=== PATIENT | male | born 1960 | race Caucasian/White ===

== ENCOUNTER 2024-04-12 07:13 | Inpatient (IN) | payer MEDICAID ==
[~2024-04-12] VITALS: Ht 172.7 cm; Wt 80.7 kg
[~2024-04-12 07:13] MED LIST: AMOX-999 PO
[2024-04-12 07:47] VITALS: BP 149/96; PULSE 74; RESP 18; TEMP 97.3; O2SAT 99
[2024-04-12 09:14] LABS: BASOPHILS % (AUTO) 0.4 % (0.0-2.0); EOSINOPHILS # (AUTO) 0.2 K/uL (0-0.4); EOSINOPHILS % (AUTO) 2.7 % (0.0-4.0); HEMATOCRIT 43.5 % (36-52); HEMOGLOBIN 14.5 g/dL (12.0-18.0); LYMPHOCYTES # (AUTO) 2.4 K/uL (2.0-11.5); LYMPHOCYTES % (AUTO) 26.9 % (20.5-51.1); MEAN CORPUSCULAR HEMOGLOBIN 30 pg (27-31); MEAN CORPUSCULAR HGB CONC 34 g/dL (33-37); MEAN CORPUSCULAR VOLUME 90.4 fL (80-94); MONOCYTES # (AUTO) 0.8 K/uL (0.8-1.0); MONOCYTES % (AUTO) 8.7 % (1.7-9.3); NEUTROPHILS # (AUTO) 5.6 K/uL (1.8-7.7); NEUTROPHILS % (AUTO) 61.3 % (42.2-75.2); PLATELET COUNT (AUTO) 397 K/uL (140-450); RED BLOOD CELL COUNT(AUTO) 4.81 MIL/uL (4.20-6.10); RED CELL DISTRIBUTION WIDTH 14.9 % (11.6-13.7); WHITE BLOOD COUNT (AUTO) 9.1 K/uL (4.8-10.8)
[2024-04-12 09:26] LABS: INR 0.98 (0.8-1.2); PROTHROMBIN TIME 10.3 secs (10.8-13.4)
[2024-04-12 09:32] LABS: ANION GAP 11.9 (8-16); CALCIUM 8.6 mg/dL (8.5-10.1); CREATININE 0.8 mg/dL (0.6-1.3); POTASSIUM 3.9 mmol/L (3.5-5.1)
[2024-04-12 09:36] LABS: ALBUMIN 3.6 g/dL (3.4-5.0); BILIRUBIN,DIRECT 0.2 mg/dL (0.0-0.3); TOTAL BILIRUBIN 0.8 mg/dL (0.0-1.0); TOTAL PROTEIN, SERUM 7.2 g/dL (6.4-8.2)
[2024-04-12] MEDS ORDERED: CLINDAMYCIN 600 MG/4 ML VIAL IV ONE (12:55)
[2024-04-12] MEDS: AMPICILLIN/SULBACTAM 1.5 GM in NACL 0.9% 50 ML IV SCH (13:00)
[2024-04-12] MEDS: CLINDAMYCIN 600MG/D5W PM 50 ML IV SCH (13:02)
[2024-04-12] MEDS: LIDOCAINE/EPI 1% 1:100000 20 ML VIAL INJ ONE ×2 (13:45→14:40)
[2024-04-12] MEDS ORDERED: HYDROcodone/APAP 5/325 MG 1 TAB TAB PO PRN (14:05)
[2024-04-12] MEDS ORDERED: HYDROmorphone 1 MG/ML AMP IVP PRN (14:05)
[2024-04-12] MEDS: ACETAMINOPHEN 100 ML IV ONE (14:15)
[2024-04-12] MEDS: fentaNYL citrate 0.05 MG/ML VIAL ONE (14:17)
[2024-04-12] MEDS: MIDAZOLAM 2 MG/2 ML VIAL ONE (14:17)
[2024-04-12] MEDS: PROPOFOL 200 MG/20 ML VIAL IV ONE ×2 (14:25→14:41)
[2024-04-12] MEDS: BUPIVACAINE-MPF 0.25% 30 ML VIAL INJ ONE (14:40)
[2024-04-12] MEDS: HYDROGEN PEROXIDE 3% 240 ML BTL TP ONE (14:45)
[2024-04-12 15:50] VITALS: PULSE 55; RESP 20; RESP 55; O2SAT 99
[2024-04-12] MEDS: lisinopriL 5 MG TAB PO SCH (17:45)
[2024-04-12 20:00] VITALS: BP 129/74; PULSE 71; PULSE 74; RESP 18; TEMP 97.5; O2SAT 96
[2024-04-13] VITALS: BP 115/71; PULSE 64; PULSE 73; RESP 18; TEMP 97.8; O2SAT 97
[2024-04-13 04:00] VITALS: BP 105/67; PULSE 66; PULSE 69; RESP 16; TEMP 98; O2SAT 97
[2024-04-13 06:11] LABS: BASOPHILS % (AUTO) 0.4 % (0.0-2.0); EOSINOPHILS # (AUTO) 0.5 K/uL (0-0.4); EOSINOPHILS % (AUTO) 4.7 % (0.0-4.0); HEMATOCRIT 40.3 % (36-52); HEMOGLOBIN 13.6 g/dL (12.0-18.0); LYMPHOCYTES # (AUTO) 2.3 K/uL (2.0-11.5); LYMPHOCYTES % (AUTO) 21.7 % (20.5-51.1); MEAN CORPUSCULAR HEMOGLOBIN 30 pg (27-31); MEAN CORPUSCULAR HGB CONC 34 g/dL (33-37); MEAN CORPUSCULAR VOLUME 89.9 fL (80-94); MONOCYTES # (AUTO) 0.8 K/uL (0.8-1.0); MONOCYTES % (AUTO) 7.9 % (1.7-9.3); NEUTROPHILS % (AUTO) 65.3 % (42.2-75.2); PLATELET COUNT (AUTO) 373 K/uL (140-450); RED BLOOD CELL COUNT(AUTO) 4.48 MIL/uL (4.20-6.10); RED CELL DISTRIBUTION WIDTH 14.8 % (11.6-13.7); WHITE BLOOD COUNT (AUTO) 10.7 K/uL (4.8-10.8)
[2024-04-13 06:14] LABS: ANION GAP 9.3 (8-16); CALCIUM 8.6 mg/dL (8.5-10.1); CARBON DIOXIDE 28.8 mmol/L (21-32); CREATININE 0.7 mg/dL (0.6-1.3); POTASSIUM 4.1 mmol/L (3.5-5.1)
[2024-04-13 08:00] VITALS: BP 107/68; PULSE 63; PULSE 70; RESP 18; TEMP 98.8; O2SAT 96; O2SAT 99
[2024-04-13] MEDS ORDERED: LEVO-481 PO (10:08)
[2024-04-13] MEDS ORDERED: IBUP-2213 PO (10:08)
[2024-04-13] MEDS ORDERED: CLIN150C1 PO (10:08)
[2024-04-13 10:10] VITALS: BP 107/68; PULSE 70; RESP 18; TEMP 98.8
[2024-04-13 12:00] VITALS: BP 107/68; PULSE 70; PULSE 71; RESP 18; TEMP 98.8; O2SAT 96
== END 2024-04-13 14:31 | disposition home or self-care (01) | DRG 226 ==
LOC: MED 07:13 → MTU 12:27 → MMU 15:59
PROVIDERS: ADMIT Student in an Organized Health Care Education/Training Program; ATTEND Student in an Organized Health Care Education/Training Program
PROC: 0D9Q0ZZ Drainage of Anus, Open Approach (ICD-10-PCS; principal; 2024-04-12 13:20)
DX: K61.0 Anal abscess (principal); I10 Essential (primary) hypertension; L02.31 Cutaneous abscess of buttock; Z79.899 Other long term (current) drug therapy
CPT/HCPCS: 36415; 80048; 80076; 83605; 85025; 85610; 85730; 87040; 87081; 97116; 97163-GP; 99285; J0295; J2001; J2250; J2704; J3010; J3490; J7120; Q9967